=== PATIENT | male | born 1995 | race Caucasian/White ===

== ENCOUNTER 2022-03-08 14:16 | Emergency (ER) | payer OTHER ==
[~2022-03-08 14:16] MED LIST: ZOFRAN4 M1 PO
[2022-03-08 15:36] LABS: BILIRUBIN NEGATIVE (NEGATIVE); BLOOD NEGATIVE Ery/uL (NEGATIVE); CLARITY CLOUDY (CLEAR); COLOR YELLOW (YELLOW); GLUCOSE (U) NORMAL (NORMAL); LEUKOCYTES NEGATIVE Leu/uL (NEGATIVE); NITRITE NEGATIVE (NEGATIVE); PROTEIN NEGATIVE (NEGATIVE); pH 7.5 (5.0-9.0)
[2022-03-08] MEDS ORDERED: CIPRO500 MG PO (16:53)
[2022-03-10 21:06] LABS: CHLAMYDIA TRACHOMATIS, NAA Positive (Negative); NEISSERIA GONORRHOEAE, NAA Negative (Negative)
== END 2022-03-08 16:56 | disposition home or self-care (01) ==
LOC: FER 14:16
PROVIDERS: Nurse Practitioner Family
DX: N39.0 Urinary tract infection, site not specified (principal); Z88.0 Allergy status to penicillin; Z88.1 Allergy status to other antibiotic agents; Z28.310 Unvaccinated for COVID-19
CPT/HCPCS: 81003; 87491; 87591; 99284